=== PATIENT | female | born 1945 | race Caucasian/White ===

== ENCOUNTER → 2017-10-24 | Outpatient (CLI) | payer MEDICARE ==
[~2017-10-24] MED LIST: ACET-1600 PO; ALLO100T30 PO; CALC-183 PO; CHOL10003 PO; DOCU-131 PO; DOXE50CA PO; FLUO20TA25 PO; IBUP-1221 PO; IBUP-1222 PO; LANS30CA PO; LORA10TA3 PO; MONT10TA6 PO; PYRI100T2 PO; TAMS-11 PO; TRAM100T2 PO; TRAM50TA2 PO; TRIM100T PO
== END | disposition home or self-care (01) ==
LOC: RAD 12:18
PROVIDERS: ATTEND Urology
DX: M51.36 Other intervertebral disc degeneration, lumbar region (principal); N20.1 Calculus of ureter
CPT/HCPCS: 74018

== ENCOUNTER → 2018-11-17 | Outpatient (CLI) | payer MEDICARE ==
[~2018-11-17] MED LIST changes: +LORA-247 PO; -LORA10TA3 PO; -TRAM100T2 PO; +TRAM100T33 PO
== END | disposition home or self-care (01) ==
LOC: CFH 09:37
PROVIDERS: ATTEND Nurse Practitioner
DX: Z12.31 Encounter for screening mammogram for malignant neoplasm of breast (principal)
CPT/HCPCS: 77067